=== PATIENT | male | born 1955 | race Caucasian/White ===

== ENCOUNTER → 2018-12-17 08:45 | Outpatient (POV) | payer SELFPAY ==
[2018-12-17 08:53] VITALS: BP 179/85; PULSE 70; RESP 18; O2SAT 98
--- NOTE | 2018-12-17 09:11 | HMH.PMCON ---
Assessment and Plan (1) Left hip pain Current visit: Yes Status: Chronic Category: Medical Code(s): M25.552 - Pain in left hip (2) Chronic SI joint pain Current visit: Yes Status: Chronic Category: Medical Code(s): M53.3 - Sacrococcygeal disorders, not elsewhere classified; G89.29 - Other chronic pain - Assessment and plan all Dx Assessment and Plan for all problems:: We will order SI joint x-ray and hip x-ray on the left side. Patient may need an MRI. We will review this and move forward from there. Dr. Acosta has reviewed this note and agrees with this plan of care. This note was dictated using voice recognition software and may contain errors or omissions HPI - Data of Consult Consult date: 12/17/18 Requesting Physician: Elly Lafleur APRN Primary Care Provider: Referral Provider, Family Provider: self - Consult Narrative Reason for consult: left hip pain History of present illness: Mr. Lafleur is a 63 year old male who presents today for consultation in regards to his left hip pain. Patient is not having any back pain. Patient has had SI joint problems in the past. He has no recent diagnostic imaging. He rates his pain a 3 out of 10 however he can go up to a 7 out of 10. Patient has extreme point tenderness over his left hip and left SI joint. Patient states that he has a very active job and he walks up to 5 miles a day. Patient is on anti-inflammatories he is continuing a home stretching program. Patient is also recently lost weight. CC: Elly Lafleur APRN [facility] History I have reviewed the patient's past medical history: Yes Medical History: Denies:: Cancer, Diabetes Mellitus Type 1, Diabetes Mellitus Type 2, Internal Pacemaker, MRSA *Have you ever received a pneumonia vaccine?: No *Have you received a flu vaccine this season?: No Other Medical History: Reports: Arthritis Other Surgeries: No: Pacemaker Amputation: No Fractures: No - *Social History Smoking Status: Never smoker Alcohol Intake: never *Occupational Status:: other Housing: house Household Members: spouse *Travel in the last 8 weeks: None - Psychiatric History Expresses thoughts of harming self/others: None Suicide Plan Description: No Plan Family Hx:: Unable to obtain Review of Systems - Review of Systems ROS General: no recent weight change, no fever, no sleep disturbances Respiratory: no cough, no shortness of air, no recurring pulmonary infections Cardiovascular/Peripheral Vascular: No chest pain, No palpitations, no edema, no shortness of breath. Gastrointestinal: no incontinence, normal bowel movements reported Genitourinary: no incontinence Musculoskeletal: Left hip pain Psychiatric: normal mood/ affect Neurological: [denies weakness in extremities], [denies balance issues] Meds Home Medications Medication Instructions Recorded Confirmed Type No Known Home Medications 12/17/18 12/17/18 History Allergies Allergy/AdvReac Type Severity Reaction Status Date / Time No Known Allergies Allergy Verified 12/17/18 09:07 Objective Vital signs: Pulse Resp BP Pulse Ox 70 18 179/85 H 98 12/17/18 08:53 12/17/18 08:53 12/17/18 08:53 12/17/18 08:53 Narrative: Physical Exam General: Alert and oriented x3, no acute distress, pleasant and cooperative, [on room air] Lungs: Resps E/U, Symmetrical chest expansion, Eyes: PERRL Musculoskeletal: Flexion and extension of lumbar spine somewhat guarded secondary to pain, deep tendon reflexes normal, strength in upper and lower extremities [5/5], slightly antalgic gait noted. Positive Lisa test, positive SI joint compression test, positive Mandeep's test, extreme point tenderness over left hip. Neurological: speech clear, guide delegate equal, no gross sensory deficits Opioid Risk Tool - Opioid Risk Tool-Male Family hx alcohol abuse: N Family hx illegal drugs: N Family hx rx drug abuse: N P
--- NOTE | 2018-12-17 09:24 | XR_ITS ---
XR sacroiliac joint BI min 3V CLINICAL INDICATION: ITS.REASON: LT HIP AND BACK PAIN ORDERING PHYSICIAN: Elly Lafleur APRN PATIENT AGE: 63 years Comparison: None FINDINGS: The SI joints have an unremarkable appearance. No evidence of fusion or sclerosis. There are facet arthritic changes at L4-5 and L5-S1 IMPRESSION: Negative SI joints Bilateral facet arthritic changes at L4-5 and L5-S1
--- NOTE | 2018-12-17 09:24 | XR_ITS ---
XR hip LT 2-3V w/pelvis HISTORY: ORDERING PHYSICIAN: Elly Lafleur APRN PATIENT AGE: 63 years COMPARISON: None FINDINGS: There are moderate osteoarthritic changes of the left hip with decrease in joint space superiorly with osteosclerosis and osteophyte formation. No fracture or dislocation. No lytic or blastic change. IMPRESSION: Moderate osteoarthritis of left hip
== END ==
PROVIDERS: Visit Provider Clinical Nurse Specialist Family Health
DX: M25.552 Pain in left hip (principal); M54.9 Dorsalgia, unspecified; M53.3 Sacrococcygeal disorders, not elsewhere classified; G89.29 Other chronic pain
CPT/HCPCS: 72202; 73502; 99202

== ENCOUNTER → 2020-08-11 14:28 | Outpatient (POV) | payer SELFPAY | PROVIDERS: Visit Provider Dermatology | DX: Z00.00 Encounter for general adult medical examination without abnormal findings (principal) ==

== ENCOUNTER → 2021-08-10 11:50 | Outpatient (CLI) | payer OTHER, SELFPAY ==
[2021-08-11 06:11] LABS: Covid-19 Nasal PCR Sendout Lex POSITIVE
== END ==
PROVIDERS: PCP Internal Medicine; Visit Provider Nurse Practitioner
DX: U07.1 COVID-19 (principal)
CPT/HCPCS: C9803; U0004; U0005

== ENCOUNTER 2024-09-20 10:51 | Outpatient (CLI) | payer MEDICARE, SELFPAY ==
[2024-09-20 11:21] LABS: Hemoglobin A1C 5.2 % (4.0-6.0)
[2024-09-20 11:48] LABS: Alanine Aminotransferase 34 U/L (12-78); Albumin Level 4.5 g/dl (3.5-5.0); Albumin/Globulin Ratio 1.7 (1.1-1.8); Alkaline Phosphatase 86 U/L (38-126); Anion Gap 12.2 mEq/L (5-15); Aspartate Amino Transferase 31 U/L (17-59); Bilirubin,Total 0.8 mg/dl (0.2-1.3); Blood Urea Nitrogen 14 mg/dl (9-20); Calcium 9.7 mg/dl (8.4-10.2); Carbon Dioxide 25 mmol/L (22.0-30.0); Chloride 107 mmol/L (98-107); Cholesterol 233 mg/dl (140-200); Estimated Glomerular Filt Rate 84 ml/min (>60); GFR (African American) 102 ML/MIN (>60); Globulin 2.7 g/dL (1.3-3.2); Glucose 109 mg/dl (74-100); HDL Cholesterol 58 mg/dl (40-60); Potassium 4.2 mmoL/L (3.5-5.1); Sodium 140 mmol/L (136-145); Total Protein,Serum 7.2 g/dl (6.3-8.2); Triglycerides 168 mg/dl (30-150); VLDL Cholesterol 34 mg/dL (0-40)
[2024-09-20 11:58] LABS: Direct LDL Cholesterol 122.36 mg/dL (100-129)
== END 2024-09-20 23:59 | disposition home or self-care (01) ==
LOC: LAB 10:53
PROVIDERS: PCP Nurse Practitioner Family; Visit Provider Nurse Practitioner Family
DX: Z00.00 Encounter for general adult medical examination without abnormal findings (principal); I10 Essential (primary) hypertension; E78.5 Hyperlipidemia, unspecified
CPT/HCPCS: 36415; 80053; 80061; 83036

== ENCOUNTER 2024-11-20 08:24 | Day surgery (SDC) | payer MEDICARE, SELFPAY ==
[2024-11-20 09:12] VITALS: BP 157/82; PULSE 66; RESP 16; TEMP 36.6; O2SAT 99; BMI 29.9
[2024-11-20] MEDS: LACTATED RINGERS 1000ML 1,000 ML 50 ML IV (09:26)
--- NOTE | 2024-11-20 09:51 | EXP.ANES.CKL ---
[facility] Disclaimer: The information contained in this section may have been updated after the patient was seen, as this information can be updated by other users. Medical History (Updated 11/20/24 @ 09:15 by Kassie Hale RN) History of COVID-19 Hypertension Skin cancer Surgical History (Updated 11/20/24 @ 09:15 by Kassie Hale RN) History of tonsillectomy History of hip surgery Family History (Updated 11/20/24 @ 09:15 by Kassie Hale RN) Other No significant family history Social History (Updated 11/20/24 @ 09:16 by Kassie Hale RN) Smoking Status: Never smoker alcohol intake: current substance use type: denies use current occupational status: employed Travel in the last 8 weeks?: None household members: spouse housing: house caffeine: Yes [facility] Anesthesia Checklist Patient Identification Patient Identification: Verbal (Name & ) Structural Data Admitted From: Home Planned Operative Procedure/s: colonoscopy Consent for Planned Operative Procedure(s) Verified: Yes NPO Status Verified Time NPO: 00:00 Airway Assessment Mallampati Score:: Class II C-Spine Mobility Assessed: Yes TMJ Mobility Assessed: Yes Dentition: Good Dentition Neurological Assessment Level of Consciousness: Awake, Alert and Appropriate Anesthesia Plan Anesthesia Risk discussed: Yes Anesthesia Plan: Verified ASA Class: II Anesthesia Type: MAC
--- NOTE | 2024-11-20 09:53 | EXP.HP ---
History of Present Illness *Admission Date: 11/20/24 *Reason for visit:: Screening for colon cancer *History of present illness: Mr. Lafleur is a 69-year-old gentleman who is here for screening for colon cancer. The examination is deemed medically necessary for screening colonoscopy. The patient has been seen, interviewed and examined prior to the procedure by both myself and the anesthesia provider. [facility] Disclaimer: The information contained in this section may have been updated after the patient was seen, as this information can be updated by other users. Medical History (Updated 11/20/24 @ 10:03 by Adam Chavis II, MD) History of COVID-19 Hypertension Skin cancer Surgical History (Updated 11/20/24 @ 09:15 by Kassie Hale RN) History of tonsillectomy History of hip surgery Family History (Updated 11/20/24 @ 09:15 by Kassie Hale RN) Other No significant family history Social History (Updated 11/20/24 @ 09:52 by Alden Thomas CRNA) Smoking Status: Never smoker alcohol intake: current substance use type: denies use current occupational status: employed Travel in the last 8 weeks?: None household members: spouse housing: house caffeine: Yes Have you lived/traveled outside US in past 30 days?: No Contact w/someone who lives/traveled outside US past 30 days?: No Exposure to someone with infectious disease in past 14 days?: No Do you have a fever (greater than 100.4 F or 38 C)?: No Have you tested positive for COVID-19?: No Exposed to someone with COVID-19 in past 14 days?: No Do you have a sore throat?: No Do you have a cough?: No Do you have any weakness?: No Are you experiencing any nausea/vomitting?: No Do you have any diarrhea?: No Are you experiencing any unusual bleeding?: No Do you have any muscle aches/pain?: No Do you have any abdominal pain?: No Are you experiencing loss of taste or smell?: No Other Medical History Have you received the Flu Vaccine for this season: No Have you received the Pneumonia Vaccine: No Review of Systems Review of Systems Review of systems (narrative): Negative *Cardiovascular Comments: Negative *Gastrointestinal Comments: Negative *Genitourinary Comments: Negative *Musculoskeletal Comments: Negative *Neurologic Comments: Negative Meds Home Medications and Allergies Home Medications ?Medication ?Instructions ?Recorded ?Confirmed ?Type sodium,potassium,mag sulfates 17.5 See Rx Instructions PO .COMPLEX 11/07/24 Rx gram-3.13 gram-1.6 gram oral soln #354 mL (Suprep Bowel Prep Kit) sodium sul 1.479 gram-potas ch See Rx Instructions PO PER PKG DIR 11/12/24 Rx 0.188 gram-magnes sul 0.225 gram colonscopy #24 tabs tablet (Sutab) New Prescriptions to Start Prescriptions: Allergies Allergy/AdvReac Type Severity Reaction Status Date / Time No Known Allergies Allergy Verified 11/20/24 09:12 Exam Data for Last 24 hours Vital signs and Labs for Last 24 Hours: Temp Pulse Resp BP Pulse Ox O2 Del Method 97.9 F 66 16 157/82 H 99 Room Air 11/20/24 09:12 11/20/24 09:12 11/20/24 09:12 11/20/24 09:12 11/20/24 09:12 11/20/24 09:12 I & O for Last 24 hours: Intake & Output 11/17/24 11/18/24 11/19/24 11/20/24 23:59 23:59 23:59 23:59 Weight 240 lb *Routine HEENT Exam Head: Present normocephalic Eye: Present EOMI and PERRL ENT: Present mucous membranes moist *Routine Neck Exam Neck: Present supple *Routine Respiratory Exam Respiratory: Present CTA bilaterally *Routine Cardiovascular Exam Cardiovascular: Present RRR *Routine Abdominal Exam Abdominal: Present soft and normoactive bowel sounds; Absent tenderness *Routine Rectal Exam Rectal:: deferred *Routine Genitalia Exam Genitalia:: deferred *Routine Extremities Exam Extremities: Absent cyanosis, clubbing or edema *Routine Skin Exam Skin: Present warm; Absent rash *Routine Neurological Exam Neurological: Present alert and oriented X3 Assessment and Plan *Assessment and plan (1) Screening for colon cancer: Status: Acute Category: Medical Code(s): Z12.11 - Encounter for screening for malignant neoplasm of colon Plan A/P: 1. Screening for colon cancer is the preprocedural diagnosis. The patient will be anesthetized/sedated using MAC sedation. The patient has been seen and examined. Cardiac and lung assessment prior to the examination is stable. Proceed with planned screening colonoscopy.
[2024-11-20 10:04] VITALS: O2SAT 100
--- NOTE | 2024-11-20 10:04 | P.PCN_ITS ---
[facility] Procedure Note Date: 11/20/24 Time: 10:16 Procedure Note:: Colonoscopy Procedure Report: Colonoscopy with cold snare polypectomy Endoscopist: Adam Chavis II, MD Referring physician: Gm Santiago M.D. Date of Procedure: November 20, 2024 Equipment: Olympus 190 variable stiffness pediatric colonoscope Sedation: MAC sedation Indication: Mr. Lafleur is a 69-year-old gentleman who is here for screening colonoscopy. His last colonoscopy was approximately 10 years ago and was asia l. He reports no abdominal pain, weight loss, change in his bowel habits or rectal bleeding. He reports no family history of colon cancer. Procedure: Prior to the procedure, a history and physical exam was performed, and patient's medications and allergies were reviewed. The risks, benefits and alternatives of the sedation and procedure were discussed with the patient. All questions were answered and informed consent was obtained. The patient was brought to the procedure room. Patient identification and proposed procedure were verified by the physician and the nurse. The patient was placed in a left lateral decubitus position and the scope was passed under direct vision. Throughout the procedure, the patient's blood pressure, pulse, and oxygen saturations were monitored continuously. The colonoscopy was accomplished without difficulty. The patient tolerated the procedure well. Findings: On digital rectal examination there was normal rectal tone. There were no external hemorrhoids. The colonoscope was introduced through the anal canal to the rectum and advanced to the cecum. The ileocecal valve and appendiceal orifice were identified. The scope was advanced a short distance into the ileum which appeared grossly normal. The scope was then withdrawn into the colon. The cecum, ascending, transverse, descending and sigmoid colon were grossly normal. There was a diminutive 3 mm polyp in the rectum removed via cold snare polypectomy. There were no other mucosal abnormalities identified. Upon retroflexion within the rectum there were grade 2 internal hemorrhoids with a small hypertrophied anal papilla. The preparation was excellent throughout with [place] Preparation Score of 9. The cecal time was 12 minutes. Impression: 1. Diminutive 3 mm rectal polyp 2. Grade 2 internal hemorrhoids Plan: I will follow-up the polyp histology and if the polyp is hyperplastic, he will not require surveillance colonoscopy again for 10 years. I would encourage psyllium bulking fiber supplementation on a maintenance basis.
[2024-11-20 10:21] VITALS: BP 151/75; PULSE 61; RESP 16; TEMP 36.2; O2SAT 98
[2024-11-20 10:31] VITALS: BP 177/71; PULSE 58; RESP 16; O2SAT 98
[2024-11-20 10:41] VITALS: BP 150/91; PULSE 54; RESP 16; O2SAT 98
[2024-11-20 10:51] VITALS: BP 163/82; PULSE 56; RESP 16; O2SAT 99
== END 2024-11-20 10:51 | disposition home or self-care (01) ==
PROVIDERS: PCP Internal Medicine Adolescent Medicine; Visit Provider Internal Medicine Gastroenterology
PROC: 0DJD8ZZ Inspection of Lower Intestinal Tract, Via Natural or Artificial Opening Endoscopic (ICD-10-PCS; CPT 45378; principal; 2024-11-20 10:00)
DX: Z12.11 Encounter for screening for malignant neoplasm of colon (principal); K63.5 Polyp of colon; K64.1 Second degree hemorrhoids
CPT/HCPCS: 45385; 88305; J7120

== ENCOUNTER 2025-02-07 20:14 | Emergency (ER) | payer MEDICARE, SELFPAY ==
[2025-02-07 20:24] VITALS: BP 190/107; PULSE 102; RESP 16; TEMP 36.7; O2SAT 98; BMI 29.9
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
--- NOTE | 2025-02-07 20:26 | PC.NURSE ---
Called [facility] regarding a transfer. stated they would call back
[2025-02-07 20:30] VITALS: BP 160/91; PULSE 94; O2SAT 96
--- OUTSIDE RECORDS SUMMARY | 2025-02-07 20:36 | XMS_ITS | Clinical Summary ---
Author Organization Healthcare Address [address] [place] [address] Care Team Providers Care Supervisor [employer] Name Role Phone Gm Santiago MD Primary Care Provider [phone] Family History Medical History Relation Name Comments Gout Other 1 Hypertension Other 2 Other cancer Other 3 Relation Name Status Comments Other 1 Other 2 Other 3 Social History Tobacco Use Types Packs/Day Years Used Date Smoking Tobacco: Never Alcohol Use Standard Drinks/Week Comments Yes 0 (1 standard drink = 0.6 oz pure alcohol) Alcoholic Drinks/day: Occasional alcohol use Sex and Gender Information Value Date Recorded Sex Assigned at Not on file Legal Sex Male 7:46 PM EDT Gender Identity Not on file Sexual Orientation Not on file Last Filed Vital Signs Vital Sign Reading Time Taken Comments Blood Pressure 145/83 03/23/2020 2:54 PM EDT Pulse 65 03/23/2020 2:54 PM EDT Temperature - - Respiratory Rate - - Oxygen Saturation - - Inhaled Oxygen Concentration - - Weight 104 kg (230 lb 2.6 oz) 03/23/2020 2:54 PM EDT Height 190.5 cm (6' 3 ) 03/23/2020 2:54 PM EDT Body Mass Index 28.77 03/23/2020 2:54 PM EDT Plan of Treatment Not on file Care Teams Super[employer] Relationship Specialty Start Date End Date Gm Santiago MD [address] [place] [id number] PCP - General 11/20/20
[2025-02-07 20:43] VITALS: BP 159/90; PULSE 89; O2SAT 98
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
[2025-02-07 21:15] VITALS: BP 169/98; PULSE 87; RESP 18; TEMP 36.7; O2SAT 99
[2025-02-07] MEDS: BACITRACIN ZINC OINT 30GM TUBE TP (21:16)
[2025-02-07 21:41] LABS: Hepatitis C Ab Qual. W/ RFX NEGATIVE (Negative)
== END 2025-02-07 21:16 | disposition home or self-care (01) ==
PROVIDERS: Emergency Provider Student in an Organized Health Care Education/Training Program; PCP Internal Medicine Adolescent Medicine
DX: T20.20XA Burn of second degree of head, face, and neck, unspecified site, initial encounter (principal); T22.131A Burn of first degree of right upper arm, initial encounter; X03.0XXA Exposure to flames in controlled fire, not in building or structure, initial encounter
CPT/HCPCS: 86803; 87389; 99283